=== PATIENT | male | born 1950 | race Caucasian/White ===

== ENCOUNTER 2022-02-19 08:16 | Emergency (ER) | payer MEDICARE, SELFPAY ==
--- NOTE | 2022-02-19 08:34 | XRR_ITS ---
PROCEDURE INFORMATION: Exam: XR Chest Exam date and time: 02/19/2022 8:46 AM Age: 71 years old Clinical indication: Cough and dyspnea; Additional info: Dyspnea/cough TECHNIQUE: Imaging protocol: Radiologic exam of the chest. Views: 1 view. COMPARISON: No relevant prior studies available. FINDINGS: Lungs: Calcified granuloma in the mid left lung. No focal airspace consolidation. Pleural spaces: Unremarkable. No pleural effusion. No pneumothorax. Heart/Mediastinum: Changes of prior CABG. Bones/joints: Unremarkable. XR/XR chest 1V portable [id number] IMPRESSION: No acute cardiopulmonary abnormality.
[2022-02-19 08:38] VITALS: BP 108/66; PULSE 77; RESP 16; TEMP 38.1; O2SAT 91
--- NOTE | 2022-02-19 08:51 | ED_ITS ---
HPI - Weakness General: Chief complaint: Weakness Stated complaint: SOB Time Seen by Provider: 02/19/22 08:33 Source: patient Mode of arrival: ambulatory History of Present Illness: 71-year-old male presents emergency room with pro ductive cough for the last couple of days. He reported home his oxygen saturations 82% he has been in mid 90s on room air since arriving here he is complaining of myalgias productive cough and sore throat low-grade fever as well no vomiting no diarrhea no chest pain or abdominal pain no dysuria urgency or frequency. Symptoms began 3 to 4 days after he was exposed to other sick family members during the holiday gathering slightly over a week ago. MD Complaint: generalized weakness Onset (ago): day(s) (4) Duration: constant Location: generalized Relieving factors: none Exacerbating factors: none Associated symptoms: Reports chills, decreased appetite, fever(s), headache(s), myalgias, nausea and short of breath; Denies chest pain, confusion, melena, diaphoresis, dysuria, easy bruising, rash, syncope or vomiting Review of Systems Const: Reports: fever(s), chills, fatigue and malaise; Denies: diaphoresis ENMT: Denies: throat pain, ear or mastoid pain, nasal discharge or nasal congestion Card: Denies: chest pain, palpitations, irregular heart rhythm or syncope Resp: Reports: dyspnea and productive cough; Denies: non-productive cough GI: Reports: nausea; Denies: vomiting or melena : Denies: dysuria, urinary frequency or urinary urgency Musc: Reports: neck pain, back pain and extremity pain Skin/Breast: Denies: rash or pruritus Neuro: Reports: headache(s); Denies: confusion Kevin/Lymph: Denies: easy bruising PFS ED PFSH: Social History (Updated 02/19/22 @ 09:05 by Smith Garcia DO) Smoking and tobacco status: never smoked Alcohol intake: current Alcohol intake frequency: holidays/special occasions only Physical Exam Const: COMMON NORMALS: no acute distress GENERAL APPEARANCE: cooperative and comfortable ORIENTATION/CONSCIOUSNESS: Yes awake, Yes oriented to person, Yes oriented to place and Yes oriented to time HENMT: COMMON NORMALS: normocephalic, atraumatic and hearing grossly normal bilaterally HEAD & SCALP: normocephalic and atraumatic Resp: COMMON NORMALS: normal respiratory effort, No retractions and No use of accessory muscles AUSCULTATION: rhonchi Cardio: COMMON NORMALS: regular rate, regular rhythm and No murmurs present (Cardio) RATE: regular rate RHYTHM: regular rhythm GI: COMMON NORMALS: Soft to palpation and No hepatosplenomegaly present AUSCULTATION: Yes normoactive bowel sounds PALPATION: Yes Soft to palpation, No Tenderness to palpation present (GI), No Guarding due to palpation present (GI) and Yes No hepatosplenomegaly present Extremity: COMMON NORMALS: normal to inspection, capillary refill normal, no clubbing, cyanosis or edema, no calf tenderness and no pedal edema Neuro: SENSORIUM/ORIENTATION: Yes oriented to person, Yes oriented to place and Yes oriented to time Skin: COMMON NORMALS: no rashes or lesions noted GENERAL SKIN EXAM: no rashes or lesions noted Course Vital Signs: Vital signs: Vital Signs Temperature 100.6 F H 02/19/22 08:38 Pulse Rate 88 02/19/22 12:06 Respiratory Rate 16 02/19/22 12:02 Blood Pressure 100/51 02/19/22 11:22 Pulse Oximetry 98 02/19/22 12:02 Oxygen Delivery Me thod 02/19/22 12:02 MDM - Weakness Medical Decision Making No clear pneumonia on chest x-ray or CT. No PE. I do think clinically is in 1 especially amount of thick mucus he is producing. His white count is elevated but his sats are remaining stable he is a little bit of a low-grade fever his sats improved significantly after he was given a nebulizer treatment we will discharge him home with albuterol and Levaquin. Patient usually drives back to [place] to see a physician he had before he moved to this area discussed with him why I think we can treat him as an outpatient relatively close follow-up is very important and he should be seen at the [facility] walk-in clinic in the next 2 to 3 days. If he has any worsening problems return to the emergency room. Medical Records I reviewed the patient's medical records. Lab Data I reviewed the patient's lab results. 02/19/22 08:55 02/19/22 08:55 Radiology Impressions Chest X-Ray 02/19/22 08:34 IMPRESSION: No acute cardiopulmonary abnormality. Chest CTA 02/19/22 10:46 IMPRESSION: 1. No pulmonary emboli or other acute cardiopulmonary pathology identified. 2. Several 6-7 mm pulmonary nodules are seen in the lungs bilaterally, indeterminate. Correlate with any history of malignancy or prior imaging of the chest. Otherwise, for patients at low risk (minimal or absent history of smoking and of other known risk factors), recommend CT Chest at 3-6 months, then consider CT Chest at 18-24 months. For patients at high risk (history of smoking or of other known risk factors), recommend CT Chest at 3-6 months, then CT Chest at 18-24 months. (Reference: Neto) REFERENCES: Neto Melo, et al. Guidelines for Management of Incidental Pulmonary Nodules Detected on CT Images: From the Fleischner Society 2017. Radiology. 2017;284(1):228-243. Laboratory Results WBC 24.3 10^3/uL (4.0-10.0) H 02/19/22 08:55 RBC 4.62 10^6/uL (4.1-5.3) 02/19/22 08:55 Hgb 14.5 g/dL (11.7-16.6) 02/19/22 08:55 Hct 44.5 % (42.0-52.0) 02/19/22 08:55 MCV 96.3 fl (80-94) H 02/19/22 08:55 MCH 31.4 pg (28.0-34.0) 02/19/22 08:55 MCHC 32.6 g/dL (30.0-36.0) 02/19/22 08:55 RDW 13.6 % (12.1-15.1) 02/19/22 08:55 Plt Count 85 10^3/cmm (130-400) L 02/19/22 08:55 MPV 12.8 fL (7.4-10.4) H 02/19/22 08:55 Neut % (Auto) 37.9 % 02/19/22 08:55 Lymph % (Auto) 4.1 % 02/19/22 08:55 Catron % (Auto) 57.1 % 02/19/22 08:55 Eos % (Auto) 0.1 % 02/19/22 08:55 Baso % (Auto) 0.1 % 02/19/22 08:55 Neut # (Auto) 9.19 10^3/uL (1.8-7.7) H 02/19/22 08:55 Lymph # (Auto) 1.0 10^3/uL (0.8-4.8) 02/19/22 08:55 Catron # (Auto) 13.9 10^3/uL (0.2-0.9) H 02/19/22 08:55 Eos # (Auto) 0.0 10^3/uL (0.0-0.8) 02/19/22 08:55 Baso # (Auto) 0.0 10^3/uL (0.0-0.1) 02/19/22 08:55 Nucleated RBC % (auto) 0 % 02/19/22 08:55 Nucleated RBCs # 0.0 /100WBC 02/19/22 08:55 Sodium 135 mmol/L (136-145) L 02/19/22 08:55 Potassium 3.9 mmol/L (3.5-5.1) 02/19/22 08:55 Chloride 102 mmol/L (98-107) 02/19/22 08:55 Carbon Dioxide 23 mmol/L (22-29) 02/19/22 08:55 Anion Gap 13.9 (5-19) 02/19/22 08:55 BUN 31 mg/dL (8-23) H 02/19/22 08:55 Creatinine 1.4 mg/dL (0.7-1.2) H 02/19/22 08:55 GFR Calculation Not Reportable 02/19/22 08:55 Glucose 137 mg/dL (65-115) H 02/19/22 08:55 Calculated Osmolality 289 mOsm/kg (285-295) 02/19/22 08:55 Calcium 8.7 mg/dL (8.5-10.5) 02/19/22 08:55 Total Bilirubin 0.6 mg/dL (0.15-1.2) 02/19/22 08:55 AST 120 U/L (0-40) H 02/19/22 08:55 ALT 114 U/L (0-41) H 02/19/22 08:55 Alkaline Phosphatase 96 U/L (40-130) 02/19/22 08:55 Total Protein 7.5 g/dL (6.6-8.7) 02/19/22 08:55 Albumin 4.0 g/dL (3.5-5.2) 02/19/22 08:55 Globulin 3.5 g/dL (1.3-4.6) 02/19/22 08:55 Influenza Type A Ag negative (Negative) 02/19/22 10:00 Influenza Type B Ag negative (Negative) 02/19/22 10:00 Discharge Plan Discharge Patient Disposition: Home Clinical Impression: Pneumonia Condition: Stable Prescriptions: New albuterol sulfate 90 mcg/actuation HFA aerosol inhaler 2 inh INHALATION Q4H PRN (Reason: shortness of breath or wheezing) Qty: 18 0RF levofloxacin 750 mg tablet 750 mg PO DAILY 10 Days Qty: 10 0RF Discharge Orders: Discharge ED (Routine); Ordered 02/19/22 Ordered By: Smith Garcia Patient Instructions: Opioid Safety, Pain Management Activity Restrictions/Additional Instructions: Chest x-ray and a CT were negative however based on your clinical presentation it appears you have a moderate pneumonia. Your oxygen sats are well-maintained on room air. We will discharge you home with albuterol inhaler to use as needed would recommend to use it at least every 4 hours while awake if you have any shortness of breath or cough. We will also start on an antibiotic Levaquin 750 mg once daily for 10 days. If any worsening of symptoms return to the emergency room. You should follow-up with the outpatient [facility] urgent care clinic physicians in 2 to 3 days. Coding Level of Care Code ED Surgical Instrument Technician for Ramya Fwzuly Exam Detailed
[2022-02-19 09:12] LABS: Basophils % 0.1 %; Eosinophils % 0.1 %; Hematocrit 44.5 % (42.0-52.0); Hemoglobin 14.5 g/dL (11.7-16.6); Lymphocytes % 4.1 %; Mean Corpuscular HGB Conc 32.6 g/dL (30.0-36.0); Mean Corpuscular Hemoglobin 31.4 pg (28.0-34.0); Mean Corpuscular Volume 96.3 fl (80-94); Mean Platelet Volume 12.8 fL (7.4-10.4); Monocytes # 13.9 10^3/uL (0.2-0.9); Monocytes % 57.1 %; Neutrophils # 9.19 10^3/uL (1.8-7.7); Neutrophils % 37.9 %; Nucleated Red Blood Cells % 0 %; Platelet Count 85 10^3/cmm (130-400); Red Blood Count 4.62 10^6/uL (4.1-5.3); Red Cell Distribution Width 13.6 % (12.1-15.1); White Blood Count 24.3 10^3/uL (4.0-10.0)
[2022-02-19 09:26] LABS: Alanine Aminotransferase 114 U/L (0-41); Alkaline Phosphatase 96 U/L (40-130); Anion Gap 13.9 (5-19); Aspartate Amino Transferase 120 U/L (0-40); Blood Urea Nitrogen 31 mg/dL (8-23); Calcium 8.7 mg/dL (8.5-10.5); Carbon Dioxide 23 mmol/L (22-29); Chloride 102 mmol/L (98-107); Globulin 3.5 g/dL (1.3-4.6); Glucose 137 mg/dL (65-115); Osmolality Calculated 289 mOsm/kg (285-295); Potassium 3.9 mmol/L (3.5-5.1); Sodium 135 mmol/L (136-145); Total Bilirubin 0.6 mg/dL (0.15-1.2); Total Protein 7.5 g/dL (6.6-8.7)
[2022-02-19 09:38] LABS: Slide Review Slide Review Perform
[2022-02-19 10:29] LABS: Influenza A by IFA negative (Negative); Influenza B by IFA negative (Negative)
--- NOTE | 2022-02-19 10:46 | CTR_ITS ---
PROCEDURE INFORMATION: Exam: CTA Chest With Contrast Exam date and time: 02/19/2022 10:58 AM Age: 71 years old Clinical indication: Dyspnea and other: Hemoptysis; Additional info: Dyspnea, prod cough and leukocytosis TECHNIQUE: Imaging protocol: Computed tomographic angiography of the chest with contrast. 3D rendering (Not supervised by radiologist): MIP and/or 3D reconstructed images were created by the technologist. Radiation optimization: All CT scans at this facility use at least one of these dose optimization techniques: automated exposure control; mA and/or kV adjustment per patient size (includes targeted exams where dose is matched to clinical indication); or iterative reconstruction. Contrast material: OMNI 350; Contrast volume: 73 ml; Contrast route: INTRAVENOUS (IV); COMPARISON: CR (CHEST, ) 02/19/2022 8:46 AM RADIATION DOSE METRICS: Total DLP (mGy-cm): 412.08 FINDINGS: Pulmonary arteries: Normal. No pulmonary emboli. Aorta: Unremarkable. No aortic aneurysm. No aortic dissection. Lungs: Scattered pulmonary nodules are seen in the lungs bilaterally, only some of which are calcified. There is a 6 mm right upper lobe nodule on series 7, image 153. There is a 6 mm right upper lobe nodule on image 233. There is a 7 mm right lower lobe nodule on image 242. There is a 7 mm left upper lobe nodule on image 220. Additional nodules are seen in the lungs bilaterally. No focal airspace consolidation. Pleural spaces: Unremarkable. No pneumothorax. No pleural effusion. Heart: Prior aortic valve replacement. Mild cardiomegaly. Lymph nodes: Mildly prominent mediastinal and hilar lymph nodes are seen. Index subcarinal lymph node measures up to 1.8 cm. Bones/joints: Unremarkable. No acute fracture. Soft tissues: Unremarkable. CT/CT angio chest PE protcl [id number] IMPRESSION: 1. No pulmonary emboli or other acute cardiopulmonary pathology identified. 2. Several 6-7 mm pulmonary nodules are seen in the lungs bilaterally, indeterminate. Correlate with any history of malignancy or prior imaging of the chest. Otherwise, for patients at low risk (minimal or absent history of smoking and of other known risk factors), recommend CT Chest at 3-6 months, then consider CT Chest at 18-24 months. For patients at high risk (history of smoking or of other known risk factors), recommend CT Chest at 3-6 months, then CT Chest at 18-24 months. (Reference: Neto) REFERENCES: Neto Melo, et al. Guidelines for Management of Incidental Pulmonary Nodules Detected on CT Images: From the Fleischner Society 2017. Radiology. 2017;284(1):228-243.
[2022-02-19] MEDS: iohexol 350 mg/mL 500 mL Btl (per mL) IV (11:02)
[2022-02-19 11:22] VITALS: BP 100/51; PULSE 90; O2SAT 92
[2022-02-19] MEDS: sodium chloride 0.9% 1,000 ML 999 ML IV (11:48)
[2022-02-19 12:02] VITALS: PULSE 84; RESP 16; O2SAT 98
[2022-02-19] MEDS: ipratropium-albuterol 3 mL Neb INHALATION (12:02)
[2022-02-19 12:06] VITALS: PULSE 88
== END 2022-02-19 12:40 | disposition home or self-care (01) ==
PROVIDERS: Emergency Provider Family Medicine
DX: J18.9 Pneumonia, unspecified organism (principal)
CPT/HCPCS: 71045; 71275; 80053; 85025; 87804; 94640; 99284; J7030; Q9967

== ENCOUNTER 2023-11-22 10:01 | Outpatient (CLI) | payer MEDICARE, SELFPAY ==
[2023-11-24 17:49] LABS: PSA Free 0.3 ng/mL; PSA Free Percentage 5 % (calc) (>25); PSA Total 5.8 ng/mL (< OR = 4.0)
== END 2023-11-22 10:02 | disposition home or self-care (01) ==
LOC: LAB 10:08
PROVIDERS: PCP Hospitalist; Visit Provider Hospitalist
DX: R97.20 Elevated prostate specific antigen [PSA] (principal)
CPT/HCPCS: 36415; 84154

== ENCOUNTER → 2024-12-12 08:08 | Outpatient (BNVA) | payer MEDICARE, SELFPAY | PROVIDERS: PCP Hospitalist; Visit Provider Thoracic Surgery (Cardiothoracic Vascular Surgery) | DX: I96 Gangrene, not elsewhere classified (principal) | CPT/HCPCS: 97597; 99213; A6210; A6213 ==

== ENCOUNTER → 2024-12-24 08:07 | Outpatient (BNVA) | payer MEDICARE, SELFPAY | PROVIDERS: PCP Hospitalist; Visit Provider Thoracic Surgery (Cardiothoracic Vascular Surgery) | DX: I96 Gangrene, not elsewhere classified (principal); L97.821 Non-pressure chronic ulcer of other part of left lower leg limited to breakdown of skin | CPT/HCPCS: 97597; A6210 ==

== ENCOUNTER 2025-01-15 06:29 | Emergency (ER) | payer MEDICARE, SELFPAY ==
[2025-01-15] VITALS (43 sets, daily range): BP systolic 91–138; BP diastolic 54–84; PULSE 73–115; RESP 10–21; TEMP 36.7; O2SAT 89–97; BMI 23.1
--- OUTSIDE RECORDS SUMMARY | 2025-01-15 06:38 | XMS_ITS | Encounter Summary ---
Author Organization [facility] Address [address] [place] [address] Care Team Providers Care Academic Services Professional Name Role Phone Hector Stoner MD Primary Care Provider [phone] Encounter Details Date Type Department Care Team (Late st Contact Info) Description 12/21/2013 Ancillary Orders [facility] [place] [address] [place] [id number] Social History Tobacco Use Types Packs/Day Years Used Date Smoking Tobacco: Never Assessed Sex and Gender Information Value Date Recorded Sex Assigned at Not on file 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 Gender Identity Not on file Sexual Orientation Not on file documented as of this encounter Plan of Treatment Not on file documented as of this encounter Procedures Procedure Name Priority Date/Time Associated Diagnosis Comments PSA MEDICARE SCREEN Routine 12/21/2013 1 1:56 AM CDT CBC WITH DIFFERENTIAL Routine 12/21/2013 11:56 AM CDT COMPREHENSIVE METABOLIC PANEL Routine 12/21/2013 11:56 AM CDT documented in this encounter Results * (ABNORMAL) CBC WITH DIFFERENTIAL (12/21/2013 11:56 AM CDT) WBC 4.3 4.2 - 9.1 K/uL 12/21/2013 2:29 PM CDT [facility] RBC 4.56(L) 4.63 - 6.08 M/uL 12/21/2013 2:29 PM CDT [facility] [place] HEMOGLOBIN 14.9 13.7 - 17.5 g/dL 12/21/2013 2:29 PM CDT [facility] [place] HEMATOCRIT 42.5 40.1 - 51.0 % 12/21/2013 2:29 PM CDT [facility] MCV 93.2(H) 79.0 - 92.2 fL 12/21/2013 2:29 PM CDT [facility] MCH 32.7(H) 25.7 - 32.2 pg 12/21/2013 2:29 PM CDT [facility] MCHC 35.1 32.3 - 36.5 g/dL 12/21/2013 2:29 PM CDT [facility] RDW 12.8 11.0 - 14.5 % 12/21/2013 2:29 PM CDT [facility] [place] RDW-STDEV 42.6 36.9 - 56.9 fL 12/21/2013 2:29 PM CDT [facility] [place] PLATELETS 190 130 - 400 K/uL 12/21/2013 2:29 PM CDT [facility] [place] MPV 11.6 10.0 - 14.8 fL 12/21/2013 2:29 PM CDT [facility] NEUTROPHILS 57 34 - 68 % 12/21/2013 2:29 PM CDT [facility] LYMPHOCYTES 23 22 - 53 % 12/21/2013 2:29 PM CDT [facility] MONOCYTES 18(H) 5 - 12 % 12/21/2013 2:29 PM CDT [facility] EOSINOPHILS 2 1 - 7 % 12/21/2013 2:29 PM CDT [facility] BASOPHILS 1 0 - 1 % 12/21/2013 2:29 PM CDT [facility] [place] NEUTROPHIL ABSOLUTE 2.46 1.78 - 5.38 K/uL 12/21/2013 2:29 PM CDT [facility] [place] LYMPHOCYTE ABSOLUTE 0.98(L) 1.20 - 3.40 K/uL 12/21/2013 2:29 PM CDT [facility] [place] MONOCYTE ABSOLUTE 0.77 0.30 - 0.82 K/uL 12/21/2013 2:29 PM CDT [facility] [place] [place] EOSINOPHIL ABSOLUTE 0.08 0.04 - 0.54 K/uL 12/21/2013 2:29 PM CDT [facility] [place] BASOPHILS ABSOLUTE 0.03 0.01 - 0.08 K/uL 12/21/2013 2:29 PM CDT [facility] [place] IMMATURE GRANULOCYTES 0 % 12/21/2013 2:29 PM CDT [facility] [place] IMMATURE GRANULOCYTES ABSOLUTE 0.00 K/uL 12/21/2013 2:29 PM CDT [facility] [place] Blood Venipuncture - L ab Collect / Unknown 12/21/2013 11:56 AM CDT 12/21/2013 11:57 AM CDT us External Provider Mtnv HEMATOLOGY ORDERABLES Fin al Result Performing Organization Address City/State/[facility] Co de Phone Number [facility] [place] CLIA # [id number] [address] [place] [phone] * (ABNORMAL) COMPREHENSIVE METABOLIC PANEL (12/21/2013 11:56 AM CDT) SODIUM 139 136 - 145 mmol/L 12/21/2013 3:27 PM CDT [facility] [place] POTASSIUM 4.4 3.5 - 5.1 mmol/L 12/21/2013 3:27 PM CDT [facility] [place] CHLORIDE 104 98 - 107 mmol/L 12/21/2013 3:27 PM CDT [facility] [place] CO2 31 21 - 32 mmol/L 12/21/2013 3:27 PM CDT [facility] [place] CALCIUM 8.9 8.5 - 10.1 mg/dL 12/21/2013 3:27 PM CDT [facility] [place] BUN 17 7 - 18 mg/dL 12/21/2013 3:27 PM CDT [facility] [place] CREATININE 1.10 0.60 - 1.30 mg/dL 12/21/2013 3:27 PM CDT [facility] [place] GLUCOSE 86 74 - 106 mg/dL 12/21/2013 3:27 PM CDT [facility] [place] TOTAL PROTEIN 7.4 6.4 - 8.2 g/dL 12/21/2013 3:27 PM [facility] ALBUMIN 3.8 3.4 - 5.0 g/dL 12/21/2013 3:27 PM [facility] BILIRUBIN TOTAL 0.6 0.2 - 1.0 mg/dL 12/21/2013 3:27 PM [facility] ALKALINE PHOSPHATASE 62 46 - 116 U/L 12/21/2013 3:27 PM [facility] AST 23 15 - 37 U/L 12/21/2013 3:27 PM [facility] ALT 22(L) 30 - 65 U/L 12/21/2013 3:27 PM [facility] GFR >60 >=60 mL/min/1.7 3 sq meter 12/21/2013 3:27 PM [facility] [employer] [facility] Comment: eGFR has not been validated for use in the elderly (> 70 years of age), women, patients with serious co-morbid conditions, or persons with extremes of body size or muscle mass and should also be interpreted with caution in patients with acute kidney failure, dialysis dependent patients, patients reporting exceptional dietary intake (e.g. vegetarian diet, high protein diets, creatine supplementation), and patients with severe liver disease. Based on National Kidney Disease Education Program If patient is , please refer to the GFR result. GFR, >60 >=60 mL/min/1.7 3 sq meter 12/21/2013 3:27 PM [facility] [employer] [facility] ANION GAP 4(L) 12 - 20 12/21/2013 3:27 PM [facility] [employer] [facility] Blood Venipuncture - L ab Collect / Unknown 12/21/2013 11:56 AM CDT 12/21/2013 11:57 AM CDT Narrative [facility] [employer] [facility] - 12/21/2013 3:27 PM CDT Effective 11/21/2013, the Alkaline Phosphatase test method and reference range have changed. Please take this into consideration when interpreting results prior to or after this date. us External Provider Mtnv CHEMISTRY ORDERABLES Barb l Result [facility] [employer] [facility] CLIA # [id number] [address] [place] [address] * PSA MEDICARE SCREEN (12/21/2013 11:56 AM CDT) PSA 0.6 0.0 - 4.0 ng/mL 12/21/2013 3:[address] [facility] Blood Venipuncture - L ab Collect / Unknown 12/21/2013 11:56 AM CDT 12/21/2013 11:57 AM CDT us External Provider Mtnv CHEMISTRY ORDERABLES COM Final Result [facility] [employer] [facility] CLIA # [id number] [address] [place] [address] documented in this encounter Visit Diagnoses Not on filedocumented in this encounter Care Teams Academic Services Professional Relationship Specialty Start Date End Date Hector Stoner MD [address] [phone] PCP - General Family Practice 08/05/16 documented as of this encounter
--- OUTSIDE RECORDS SUMMARY | 2025-01-15 06:38 | XMS_ITS | Clinical Summary ---
Author Organization [facility] Address [address] [facility] [address] [facility] Attn: [place] [address] Care Team Providers Care Jet Wiper Name Role Phone Hector Stoner MD Primary Care Provider [phone] Allergies No known active allergies Medications rosuvastatin (CRESTOR) 5 mg tablet Take 5 mg by mouth daily at bedtime. 08/12/2016 Active omeprazole magnesium (PriLOSEC) 20 mg Tablet, Delayed Release (E.C.) Take 20 mg by mouth daily. 08/12/2016 Active lisinopriL (PRINIVIL) 5 mg tablet Take 5 mg by mouth daily. 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 Gender Identity Not on file Sexual Orientation Not on file Last Filed Vital Signs Vital Sign Reading Time Taken Comments Blood Pressure 127/92 08/18/2016 1:17 PM CDT Pulse 72 08/18/2016 1:17 PM CDT Temperature 36.6 C (97.9 F) 08/18/2016 12:24 PM CDT Respiratory Rate 18 08/18/2016 1:17 PM CDT Oxygen Saturation - - Inhaled Oxygen Concentration - - Weight 88.5 kg (195 lb) 08/12/2016 10:36 AM CDT Height 190.5 cm (6' 3 ) 08/12/2016 10:36 AM CDT Body Mass Index 24.37 08/12/2016 10:36 AM CDT Plan of Treatment Health Maintenance Due Date Last Done Comments DTAP/TDAP/TD VACCINES (1 - Tdap) 1969 FIT-DNA Q 3 years 1995 FIT/FOBT Q 1 year 1995 Flex Sig/CT Colonography Q 5 years 1995 PNEUMOCOCCAL VACCINE 50+ YEARS (1 of 1 - PCV) 03/27/19 ZOSTER VACCINE (1 of 2) 2000 INFLUENZA VACCINE (#1) 2024 RSV VACCINE (60+ or ) (1 - 1-dose 75+ series) 2025 COLORECTAL SCREENING 08/18/2026 08/18/2016 Colorectal Cancer Screening 08/18/2026 Care Teams Jet Wiper Relationship Specialty Start Date End Date Hector Stoner MD [address] [phone] PCP - General Family Practice 08/05/16
--- OUTSIDE RECORDS SUMMARY | 2025-01-15 06:38 | XMS_ITS | Clinical Summary ---
Author Organization [facility] Address [address] [place] [address] Phone Care Team Providers Care Chlorinator Operator Name Role Phone Hector Stoner MD Primary Care Provider [phone] Allergies No known active allergies Medications lisinopril (PRINIVIL) 5 mg tablet Take 5 mg by mouth daily. Active rosuvastatin (CRESTOR) 5 mg tablet Take 5 mg by mouth daily at bedtime. Active omeprazole magnesium (PriLOSEC OTC) 20 mg Tablet, Delayed Release (E.C.) Take 20 mg by mouth daily. 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 Gender Identity Not on file Sexual Orientation Not on file Last Filed Vital Signs Vital Sign Reading Time Taken Comments Blood Pressure 127/92 08/18/2016 1:17 PM CDT Pulse 72 08/18/2016 1:17 PM CDT Temperature 36.6 C (97.9 F) 08/18/2016 12:24 PM CDT Respiratory Rate 18 08/18/2016 1:17 PM CDT Oxygen Saturation 97% 08/18/2016 1:17 PM CDT Inhaled Oxygen Concentration - - Weight 88.5 [...] Q 5 years 1995 PNEUMOCOCCAL VACCINE 50+ YEA RS (1 of 1 - PCV) 2000 ZOSTER VACCINE (1 of 2) 2000 INFLUENZA VACCINE (#1) 2024 RSV VACCINE (60+ or ) (1 - 1-dose 75+ series) 2025 COLORECTAL SCREENING 08/18/2026 08/18/2016, 08/19/19 Colorectal Cancer Screening 08/18/2026 Insurance [employer] [facility] [employer] MEDICARE PART A AND B Advance Directives For more information, please contact: [phone] * Full Code (Latest Code Status on File) Date Activated Date Inactivated Comments 08/18/2016 12:29 PM 08/18/2016 3:23 PM Care Teams Chlorinator Operator Relationship Specialty Start Date End Date Hector Stoner MD [address] [phone] PCP - General Family Practice 08/05/16
--- NOTE | 2025-01-15 06:40 | W.ED.GENADLT ---
HPI - General Adult General: Chief complaint: Urogenital-Male Stated complaint: Groin pain post surg Time Seen by Provider: 01/15/25 06:33 History of Present Illness: 74-year-old male who presents emergency room complaining of lower pelvic abdominal pain difficulty urinating. Recently had a laparoscopic prostatectomy. After his surgery he had been doing well but he has increasing difficulty with urination. He has not had any fever. No vomiting or diarrhea he has noticed aura blood in his urine Associated symptoms: Reports nausea; Deny chest pain, dyspnea or rash Related Data Home Medications ?Medication ?Instructions ?Recorded ?Confirmed metoprolol succinate 25 mg 25 mg PO DAILY 02/22/22 01/15/25 tablet,extended release 24 hr rosuvastatin 10 mg tablet 10 mg PO DAILY 02/22/22 01/15/25 aspirin 81 mg tablet,delayed 81 mg PO DAILY 01/15/25 01/15/25 release (Ej Low Dose Aspirin) zjskaimqesga-hyr-ykdaj acid-vit 1 tab PO DAILY 01/15/25 01/15/25 K-lycop 400 mcg-20 mcg-370 mcg tablet (Men's 50 Plus Multivitamin) omeprazole 20 mg tablet,delayed 20 mg PO DAILY PRN Acid Reflux 01/15/25 01/15/25 release Allergies Allergy/AdvReac Type Severity Reaction Status Date / Time No Known Allergies Allergy Verified 02/22/22 07:15 Review of Systems Const: Denies: fever(s) or chills Card: Denies: chest pain Resp: Denies: dyspnea GI: Reports: abdominal pain and nausea : Reports: flank pain, difficulty urinating, urinary dribbling and hematuria; Denies: dysuria, urinary frequency or urinary urgency Musc: Denies: neck pain or back pain Skin/Breast: Denies: rash PFSH ED PFSH: Medical History Leukocytosis URI with cough and congestion Surgical History (Updated 01/15/25 @ 15:35 by Smith Garcia DO) History of robot-assisted laparoscopic radical prostatectomy Social History Smoking and tobacco/nicotine status: never used tobacco/nicotine Alcohol intake: current Alcohol intake frequency: holidays/special occasions only Physical Exam Const: GENERAL APPEARANCE: cooperative ORIENTATION/CONSCIOUSNESS: Yes awake, Yes oriented to person, Yes oriented to place and Yes oriented to time HENMT: COMMON NORMALS: normocephalic, atraumatic and hearing grossly normal bilaterally HEAD & SCALP: normocephalic and atraumatic Resp: COMMON NORMALS: normal respiratory effort, No retractions, No use of accessory muscles and clear to auscultation bilaterally AUSCULTATION: clear to auscultation bilaterally Cardio: COMMON NORMALS: regular rate, regular rhythm and No murmurs present (Cardio) RATE: regular rate RHYTHM: regular rhythm GI: COMMON NORMALS: Soft to palpation and No hepatosplenomegaly present AUSCULTATION: Yes normoactive bowel sounds PALPATION: Yes Soft to palpation, Yes Tenderness to palpation present (GI), No Guarding due to palpation present (GI) and Yes No hepatosplenomegaly present OTHER: Tender to palpation bladder palpated above the level of the umbilicus Extremity: COMMON NORMALS: normal to inspection, capillary refill normal, no clubbing, cyanosis or edema, no calf tenderness and no pedal edema Neuro: SENSORIUM/ORIENTATION: Yes oriented to person, Yes oriented to place and Yes oriented to time Skin: COMMON NORMALS: no rashes or lesions noted GENERAL SKIN EXAM: no rashes or lesions noted Course Vital Signs: Vital signs: Vital Signs Temperature 98.1 F 01/15/25 10:38 Pulse Rate 83 01/15/25 15:06 Respiratory Rate 16 01/15/25 15:06 Blood Pressure 106/58 01/15/25 15:06 Pulse Oximetry 93 01/15/25 15:06 Oxygen Delivery Me thod Room Air 01/15/25 15:06 [facility] - General Adult Medical Decision Making Patient initially presented on exam is bladder is palpable well above the bellybutton about 3 to 4 inches. Underwood was placed without difficulty or pain and began to have immediate drainage from the bladder. CT was done and there is question of the Underwood was in the proximal prostatic urethra. Attempted reposition the plate Underwood patient had significant amount of pain he already had close to it thousand out. Without the Underwood in place he continued to drain. We have made arrangements for transfer patient has acute kidney injury hyperkalemia, urinary retention and pyelonephritis. Discussed with his urologist in [place]. They were concerned about the placement of the Underwood we attempted to repeat a pelvis CT due to the CT cystourethrogram however based on the fire patrol film discussed with Dr. Erwin and we are concerned about instilling any contrast. Tip of the Underwood looks like it may be outside the urethra however Underwood continues to drain we did clamped it for a bit did bladder scan there is 475 mL in the bladder we opened it and began to drain drained over 300 mL fairly quickly. Patient stable at this time he has been adequately cultured he said IV fluid bolus been treated for his hyperkalemia repeat BMP shows an improvement in his hyperkalemia down to to a normal range of 4.2 his creatinine went from 9 3-5 4. He generally is feeling better we have discussed with him and we will transfer to [facility] in [place] where he previously had his surgery Medical Records I reviewed the patient's medical records. Lab Data I reviewed the patient's lab results. 01/15/25 06:46 01/15/25 11:12 Radiology Impressions Abdomen/Pelvis CT 01/15/25 07:31 IMPRESSION: 1. Enlarged edematous kidneys with perinephric stranding. Very minimal dilatation of the renal pelves. Ureters are not dilated. Findings are consistent with pyelonephritis. 2. Urinary bladder is moderately distended. 3. There is a Underwood catheter present but the balloon is distended within the prostatic/membranous portion of the urethra and there is fluid surrounding the Underwood balloon suggest there may be a perforation or injury to the urethra. Recommend repositioning of the Underwood catheter. 4. Cholelithiasis without acute cholecystitis. Notified Smith Garcia DO at 01/15/2025 9:[address] 01/15/25 12:49 IMPRESSION: 1. Underwood catheter balloon continues to be distended in the expected location of the prostatic urethra. Small amount of surrounding fluid suggest there may be an injury to the urethra or bladder. 2. Urinary bladder continues to be moderately distended. Laboratory Results WBC 21.55 10^3/uL (3.29-11.43) H 01/15/25 06:46 RBC 4.32 10^6/uL (3.85-5.65) 01/15/25 06:46 Hgb 13.40 g/dL (11.27-16.99) 01/15/25 06:46 Hct 38.8 % (37-53) 01/15/25 06:46 MCV 89.8 fl (82-101) 01/15/25 06:46 MCH 31.0 pg (27-33) 01/15/25 06:46 MCHC 34.5 g/dL (30-55) 01/15/25 06:46 RDW 13.7 % (12.1-15.1) 01/15/25 06:46 Plt Count 174 10^3/cmm (157-399) 01/15/25 06:46 MPV 12.3 fL (7.4-10.4) H 01/15/25 06:46 Neut % (Auto) 60.8 % 01/15/25 06:46 Lymph % (Auto) 4.5 % 01/15/25 06:46 Hinds % (Auto) 33.1 % 01/15/25 06:46 Eos % (Auto) 0.1 % 01/15/25 06:46 Baso % (Auto) 0.1 % 01/15/25 06:46 Neut # (Auto) 13.08 10^3/uL (1.8-7.7) H 01/15/25 06:46 Lymph # (Auto) 1.0 10^3/uL (0.8-4.8) 01/15/25 06:46 Hinds # (Auto) 7.1 10^3/uL (0.2-0.9) H 01/15/25 06:46 Eos # (Auto) 0.0 10^3/uL (0.0-0.8) 01/15/25 06:46 Baso # (Auto) 0.0 10^3/uL (0.0-0.1) 01/15/25 06:46 Nucleated RBC % (auto) 0 % 01/15/25 06:46 Nucleated RBCs # 0.0 /100WBC 01/15/25 06:46 Sodium 137 mmol/L (136-145) 01/15/25 11:12 Potassium 4.2 mmol/L (3.5-5.1) 01/15/25 11:12 Chloride 101 mmol/L (98-107) 01/15/25 11:12 Carbon Dioxide 19 mmol/L (22-29) L 01/15/25 11:12 Anion Gap 21.2 (5-19) H 01/15/25 11:12 BUN 63 mg/dL (8-23) H 01/15/25 11:12 Creatinine 5.4 mg/dL (0.7-1.2) H 01/15/25 11:12 GFR Calculation Not Reportable 01/15/25 11:12 Glucose 83 mg/dL (65-115) 01/15/25 11:12 POC Glucose 127 mg/dL (70-110) H 01/15/25 09:30 Calculated Osmolality 301 mOsm/kg (285-295) H 01/15/25 11:12 Lactic Acid 1.3 mmol/L (0.5-2.2) 01/15/25 06:46 Calcium 8.6 mg/dL (8.5-10.5) 01/15/25 11:12 Total Bilirubin 0.5 mg/dL (0.15-1.2) 01/15/25 06:46 AST 48 U/L (0-40) H 01/15/25 06:46 ALT 35 U/L (0-41) 01/15/25 06:46 Alkaline Phosphatase 150 U/L (40-130) H 01/15/25 06:46 Total Protein 7.6 g/dL (6.6-8.7) 01/15/25 06:46 Albumin 4.4 g/dL (3.5-5.2) 01/15/25 06:46 Globulin 3.2 g/dL (1.3-4.6) 01/15/25 06:46 Urine Color Red (Yellow) A 01/15/25 07:03 Urine Appearance Turbid (CLEAR) A 01/15/25 07:03 Urine pH Not Reportable 01/15/25 07:03 Ur Specific [place] Not Reportable 01/15/25 07:03 Urine Protein Not Reportable 01/15/25 07:03 Urine Glucose (UA) Not Reportable 01/15/25 07:03 Urine Ketones Not Reportable 01/15/25 07:03 Urine Blood Not Reportable 01/15/25 07:03 Urine Nitrate Not Reportable 01/15/25 07:03 Urine Bilirubin Not Reportable 01/15/25 07:03 Urine Urobilinogen Not Reportable 01/15/25 07:03 Ur Leukocyte Esterase Not Reportable 01/15/25 07:03 Urine RBC Too numerous to cnt /hpf (0-2) H 01/15/25 07:03 Urine WBC 15-25 /hpf (0-5) H 01/15/25 07:03 Ur Squamous Epith Cells 0-4 /hpf (0-5) H 01/15/25 07:03 Amorphous Sediment Not Reportable 01/15/25 07:03 Urine Bacteria Trace /hpf (NONE) 01/15/25 07:03 All radiology interpretation(s) finalized by discharge Discharge Plan Discharge Patient Disposition: Xfer Short-Term Hosp Clinical Impression: Acute kidney injury, Urinary tract infection, Acute retention of urine, Acute hyperkalemia, Pyelonephritis, History of robot-assisted laparoscopic radical prostatectomy, Prostate cancer Condition: Stable Referrals: Milton Nevarez MD [Primary Care Provider, Unknown] Print Language: Croatian Coding Level of Care Code ED Biopharmaceutical Rep for Ramya Magallanes
[2025-01-15 07:00] LABS: Hematocrit 38.8 % (37-53); Hemoglobin 13.40 g/dL (11.27-16.99); Mean Corpuscular HGB Conc 34.5 g/dL (30-55); Mean Corpuscular Hemoglobin 31.0 pg (27-33); Mean Corpuscular Volume 89.8 fl (82-101); Nucleated Red Blood Cells % 0 %; Platelet Count 174 10^3/cmm (157-399); Red Blood Count 4.32 10^6/uL (3.85-5.65); White Blood Count 21.55 10^3/uL (3.29-11.43)
--- NOTE | 2025-01-15 07:08 | PC.NURSE ---
SCHOOL BUS ATTENDANT, NICKIE, PLACED ZENDEJAS, TOLERATED PROCEDURE WELL. PATIENT HAS DARK RED BLOOD DRAINING AFTER ZENDEJAS PLACED. PATIENT ALSO HAS SKIN AND TISSUE BREAKDOWN AT BASE OF PENIS. PROVIDER NOTIFIED.
[2025-01-15 07:12] LABS: Alanine Aminotransferase 35 U/L (0-41); Albumin Level 4.4 g/dL (3.5-5.2); Alkaline Phosphatase 150 U/L (40-130); Aspartate Amino Transferase 48 U/L (0-40); Calcium 9.3 mg/dL (8.5-10.5); Carbon Dioxide 16 mmol/L (22-29); Chloride 87 mmol/L (98-107); Creatinine Clr Calc Pharmacy 8.3058; Globulin 3.2 g/dL (1.3-4.6); Glucose 96 mg/dL (65-115); Osmolality Calculated 289 mOsm/kg (285-295); Sodium 127 mmol/L (136-145); Total Protein 7.6 g/dL (6.6-8.7)
[2025-01-15 07:23] LABS: Anion Gap 29.9 (5-19); Blood Urea Nitrogen 84 mg/dL (8-23); Potassium 5.9 mmol/L (3.5-5.1)
[2025-01-15 07:28] LABS: Add Urine Microscopic? YES; UA Manual Slide Review YES
--- NOTE | 2025-01-15 07:31 | CT_ITS ---
WS: [id number] CT ABDOMEN AND PELVIS NONCONTRAST HISTORY: Urinary retention acute renal failure TECHNIQUE: Imaging performed through the abdomen and pelvis. Coronal and sagittal reformats are submitted. All CT scans at [facility] use at least one of these dose optimization techniques: automated exposure control; mA and/or kV adjustment per patient size (includes targeted exams where dose is matched to clinical indication); or iterative reconstruction. DLP: 630.36 mGy.cm COMPARISON: None available. Lower thorax: 3 mm subpleural nodules LEFT lower lobe. Mild cardiomegaly. Moderate size hiatal hernia. Liver: Cirrhotic appearing liver. Mild heterogeneity within the parenchyma. Gallbladder: Normally distended with cholelithiasis. Pancreas: Normal size and attenuation. Normal pancreatic duct. No pancreatitis or mass. Spleen: Normal. Adrenal glands: Normal. No mass. Right kidney: Moderate perinephric stranding. RIGHT kidney appears slightly enlarged and edematous. There are a few tiny nonobstructing central calcifications. Mild dilatation of the RIGHT pelvis. The RIGHT ureter is not dilated. Left kidney: Moderate perinephric stranding. LEFT kidney appears mildly edematous. There are a few nonobstructing calcifications in the renal pelvis. Mild dilatation of the renal pelvis. Mild stranding around the proximal ureter. Distal ureter is not significantly dilated. Aorta: Mild atherosclerosis abdominal aorta with no aneurysm. No free fluid, intraperitoneal air or significant lymphadenopathy. GI tract: No obstruction. Diffuse mild constipation. No colitis. Abdominal wall: Ventral abdominal wall hernia contains fat only. Pelvis: Urinary bladder is moderately distended. There is a Underwood catheter present. The balloon is distended in the membranous or prostatic portion of the urethra. There is fluid extending anterior and to the LEFT from the prostatic portion of the urethra. This fluid collection is irregular measuring 6.2 x 4.4 cm. There is a tract contiguous and extending to the catheter to the urethra. Osseous structures: Unremarkable. CT/CT kidney stone [id number] IMPRESSION: 1. Enlarged edematous kidneys with perinephric stranding. Very minimal dilatat ion of the renal pelves. Ureters are not dilated. Findings are consistent with pyelonephritis. 2. Urinary bladder is moderately distended. 3. There is a Underwood catheter present but the balloon is distended within the p rostatic/membranous portion of the urethra and there is fluid surrounding the F oley balloon suggest there may be a perforation or injury to the urethra. Recom mend repositioning of the Underwood catheter. 4. Cholelithiasis without acute cholecystitis. Notified Smith Garcia DO at 01/15/2025 9:19 AM.
[2025-01-15 07:48] LABS: Lactic Sepsis W/Reflex 1.3 mmol/L (0.5-2.2)
--- NOTE | 2025-01-15 07:48 | ECG_ITS ---
[facility] Test Date: 2025-01-15 Pat Name: Mayur Howard Department: Room: Gender: Male Documentation Manager: : 1950 Requested By: Smith Jones Order Number: [id number] Reading MD: SHADI KING Measurements Intervals [place] Rate: 78 P: 13 ID: [id number] QRS: 65 QRSD: 141 T: 40 QT: 397 QTc: 455 Interpretive Statements SINUS RHYTHM RIGHT BUNDLE BRANCH BLOCK [120+ ms QRS DURATION, UPRIGHT V1, 40+ ms S IN I/aVL/V4/V5/V6] No previous ECG available for comparison Electronically Signed On 01-18-2025 21:15:27 CDT by SHADI KING [id number]
[2025-01-15] MEDS: cefTRIAXone 1,000 mg SDV 1000 MG IVP (08:00)
[2025-01-15] MEDS: calcium chloride 10% Syr 10 mL 1 GM IVP (08:07)
[2025-01-15] MEDS: sodium bicarbonate 8.4% syr 150 MEQ in dextrose 5% 200 ML 700 MEQ IV (08:11)
[2025-01-15] MEDS: insulin regular-human 100 units/1 mL 10 UNIT IVP (08:59)
--- NOTE | 2025-01-15 08:59 | PC.NURSE ---
INSULIN DELAYED DUE TO PATIENT BLOOD SUGAR OF 103 AND DEXTROSE RUNNING FOR SEPSIS AND POTASSIUM BOLUS.
--- NOTE | 2025-01-15 09:26 | PC.NURSE ---
2000 ML OUT OF ZENDEJAS, BRIGHT RED WITH CLOTS.
--- NOTE | 2025-01-15 09:26 | PC.NURSE ---
PER PHYSICIAN, ZENDEJAS NEEDED TO BE FURTHER INSERTED, PATIENT ZENDEJAS BULB IN PROSTATE. EXPLAINED TO PROVIDER THAT ZENDEJAS HAS DRAINED APPROXIMATELY 2000 ML OUT AND RETURN FLASH WAS SEEN AT TIME OF ZENDEJAS INSERT, PATENT AND DRAINING. PROVIDER VERBALIZED UNDERSTANDING AND AGREES THAT APPROPRIATE ACTION WAS TAKEN AT TIME OF ZENDEJAS INSERTION. ZENDEJAS FURTHER INSERTED INTO BLADDER, ZENDEJAS STILL PATENT AND DRAINING, CLOTS NOTED. PROVIDER NOTIFIED. 4 MG ZOFRAN AND 4 MG MORPHINE ORDERED.
[2025-01-15] MEDS: morphine 4 mg/mL SDV 1 mL IVP (09:46)
[2025-01-15] MEDS: ondansetron 2 mg/ML SDV 2 mL 4 MG IVP ×2 (09:46→16:50)
--- NOTE | 2025-01-15 12:03 | PC.NURSE ---
PATIENT ZENDEJAS BAG EMPTIED, ANOTHER 1700 ML REMOVED.
[2025-01-15 12:20] LABS: Blood Urea Nitrogen 63 mg/dL (8-23); Calcium 8.6 mg/dL (8.5-10.5); Carbon Dioxide 19 mmol/L (22-29); Chloride 101 mmol/L (98-107); Creatinine Clr Calc Pharmacy 14.3044; Glucose 83 mg/dL (65-115); Osmolality Calculated 301 mOsm/kg (285-295); Sodium 137 mmol/L (136-145)
[2025-01-15 12:32] LABS: Anion Gap 21.2 (5-19); Potassium 4.2 mmol/L (3.5-5.1)
--- NOTE | 2025-01-15 12:49 | CT_ITS ---
WS: [id number] CT PELVIS NONCONTRAST HISTORY: GROIN PAIN TECHNIQUE: Contiguous imaging is performed of the pelvis without contrast. Coronal and sagittal reformats are reviewed. All CT scans at [facility] use at least one of these dose optimization techniques: automated exposure control; mA and/or kV adjustment per patient size (includes targeted exams where dose is matched to clinical indication); or iterative reconstruction. DLP: 422.47 mGy COMPARISON: 01/15/[address] cystogram. Cystogram will not be performed due to location of the Underwood catheter. Urinary bladder continues to be moderately well distended. Underwood catheter is reidentified and does not extend into the bladder. The catheter balloon does appear to be distended in the region of the prostatic urethra. There is a small amount of surrounding fluid suggesting there may be an injury to the urethra the bladder. Continued perinephric stranding around the visualized lower poles of each kidney. CT/CT pelvis wo con [id number] IMPRESSION: 1. Underwood catheter balloon continues to be distended in the expected location o f the prostatic urethra. Small amount of surrounding fluid suggest there may be an injury to the urethra or bladder. 2. Urinary bladder continues to be moderately distended.
--- NOTE | 2025-01-15 13:30 | PC.NURSE ---
PATIENT TAKING TO CT TO DO SCAN REQUESTED BY YURY CARMONA. CONCERN REMAINS ABOUT PATIENT ZENDEJAS PLACEMENT. PER ARNAUD, CLAMP ZENDEJAS FOR 15 MINUTES, COMPLETELY DRAIN ZENDEJAS BAG, BLADDER SCAN, AND THEN OPEN UNCLAMP ZENDEJAS. 600 ML DRAINED FROM ZENDEJAS. 475 ML ON BLADDER SCAN.
--- NOTE | 2025-01-15 13:45 | PC.NURSE ---
300 ML OUT AFTER CLAMP REMOVED. PROVIDER NOTIFIED.
--- NOTE | 2025-01-15 15:06 | PC.NURSE ---
ATTEMPTED REPORT TO YURY CARMONA AT [id number]. REFUSED REPORT STATING THE CHARGE THOUGHT THE PATIENT WAS NO LONGER COMING TO THIS FACILITY. NURSE STATES SHE WILL CALL BACK.
--- NOTE | 2025-01-15 15:19 | PC.NURSE ---
PATIENT RESTING IN BED WITH EYES CLOSED, EVEN UNLABORED RESPIRATIONS.
[2025-01-15] MEDS: fentaNYL 50 mcg/mL INJ 2mL IVP (16:50)
== END 2025-01-15 17:00 | disposition short-term general hospital (02) ==
PROVIDERS: Emergency Provider Family Medicine; PCP Hospitalist
DX: N17.9 Acute kidney failure, unspecified (principal); N39.0 Urinary tract infection, site not specified; R33.8 Other retention of urine; E87.5 Hyperkalemia; N12 Tubulo-interstitial nephritis, not specified as acute or chronic; Z98.890 Other specified postprocedural states; C61 Malignant neoplasm of prostate
CPT/HCPCS: 36415; 36416; 51702; 72192; 74176; 80048; 80053; 81001; 82962; 83605; 85025; 87040; 87086; 93005; 94640; 96361; 96374; 96375; 96376; 99285; 99291; J0696; J1815; J2270; J2405; J3010; J3490; J7030; J7060; J7611; J9999

== ENCOUNTER 2025-01-29 09:40 | Emergency (ER) | payer MEDICARE, SELFPAY ==
[2025-01-29 09:54] VITALS: BP 132/88; PULSE 85; RESP 16; TEMP 36.4; O2SAT 97
--- OUTSIDE RECORDS SUMMARY | 2025-01-29 09:54 | XMS_ITS | Clinical Summary ---
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
--- OUTSIDE RECORDS SUMMARY | 2025-01-29 09:54 | XMS_ITS | Encounter Summary ---
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 Gender Identity Not on file Sexual Orientation [...] - 9.1 K/uL 12/21/2013 2:29 PM CDT [facility] RBC 4.56(L) 4.63 - 6.08 M/uL 12/21/2013 2:29 PM CDT [facility] [place] HEMOGLOBIN 14.9 13.7 - 17.5 g/dL 12/21/2013 [...] - 14.5 % 12/21/2013 2:29 PM CDT [facility] [place] RDW-STDEV 42.6 36.9 - 56.9 fL 12/21/2013 2:29 PM CDT [facility] [place] PLATELETS 190 130 - 400 K/uL 12/21/2013 2:29 PM CDT [facility] [place] MPV 11.6 [...] - 0.54 K/uL 12/21/2013 2:29 PM CDT [facility] [place] BASOPHILS ABSOLUTE 0.03 0.01 - 0.08 K/uL 12/21/2013 2:29 PM CDT [facility] [place] IMMATURE GRANULOCYTES 0 % 12/21/2013 2:29 PM CDT [facility] [place] IMMATURE GRANULOCYTES ABSOLUTE 0.00 K/uL 12/21/2013 2:29 PM CDT [facility] [place] Blood Venipuncture - L ab Collect / Unknown 12/21/2013 11:56 AM CDT 12/21/2013 11:57 AM CDT us External Provider [facility] HEMATOLOGY ORDERABLES Fin al Result Performing Organization Address City/State/[facility] Co de Phone Number [facility] [place] CLIA # [id number] [address] [place] [id number] * (ABNORMAL) COMPREHENSIVE METABOLIC PANEL (12/21/2013 11:56 AM CDT) SODIUM 139 136 - 145 mmol/L 12/21/2013 3:27 PM CDT [facility] [place] POTASSIUM 4.4 3.5 - 5.1 mmol/L 12/21/2013 3:27 PM CDT [facility] [place] CHLORIDE 104 98 - 107 mmol/L 12/21/2013 3:27 PM CDT [facility] [place] CO2 31 21 - 32 mmol/L 12/21/2013 3:27 PM CDT [facility] [place] CALCIUM 8.9 8.5 - 10.1 mg/dL 12/21/2013 3:27 PM CDT [facility] [place] BUN 17 7 - 18 mg/dL 12/21/2013 3:27 PM CDT [facility] [place] CREATININE 1.10 0.60 - 1.30 mg/dL 12/21/2013 3:27 PM CDT [facility] [place] GLUCOSE 86 74 - 106 mg/dL 12/21/2013 3:27 PM CDT [facility] [place] TOTAL PROTEIN 7.4 6.4 - 8.2 g/dL 12/21/2013 3:27 PM [facility] ALBUMIN 3.8 3.4 - 5.0 g/dL 12/21/2013 3:27 PM [facility] BILIRUBIN TOTAL 0.6 0.2 - 1.0 mg/dL 12/21/2013 3:27 PM [facility] ALKALINE PHOSPHATASE 62 46 - 116 U/L 12/21/2013 3:27 PM [facility] AST 23 15 - 37 U/L 12/21/2013 3:27 PM [facility] ALT 22(L) 30 - 65 U/L 12/21/2013 3:27 PM [facility] GFR >60 >=60 mL/min/1.7 3 sq meter 12/21/2013 3:27 PM [facility] Comment: eGFR has not been validated for [...] mL/min/1.7 3 sq meter 12/21/2013 3:27 PM [facility] ANION GAP 4(L) 12 - 20 12/21/2013 3:27 PM [facility] Blood Venipuncture - L ab Collect / Unknown 12/21/2013 11:56 AM CDT 12/21/2013 11:57 AM CDT Narrative [facility] - 12/21/2013 3:27 PM CDT Effective 11/21/2013, the Alkaline Phosphatase test method and reference range have changed. Please take this into consideration when interpreting results prior to or after this date. us External Provider [facility] CHEMISTRY ORDERABLES Barb l Result [facility] CLIA # [id number] [address] [place] [address] * PSA MEDICARE SCREEN (12/21/2013 11:56 AM CDT) PSA 0.6 0.0 - 4.0 ng/mL 12/21/2013 3:27 PM CDT [facility] Blood Venipuncture - L ab Collect / Unknown 12/21/2013 11:56 AM CDT 12/21/2013 11:57 AM CDT us External Provider Mtnv CHEMISTRY ORDERABLES COM Final Result [facility] CLIA # [id number] [address] [place] [id number] documented in this encounter Visit Diagnoses Not on filedocumented in this encounter Care Teams Commercial Appraiser Relationship Specialty Start Date End Date Hector Stoner MD [address] [phone] PCP - General Family Practice 08/05/16 documented as of this encounter
--- OUTSIDE RECORDS SUMMARY | 2025-01-29 09:54 | XMS_ITS | Clinical Summary ---
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 [employer] MEDICARE PART A AND B Advance Directives For more information, please contact: [phone] * Full Code (Latest Code Status on File) Date Activated Date Inactivated Comments 08/18/2016 12:29 PM 08/18/2016 3:23 PM Care Teams Laborer Tree Tapping Relationship Specialty Start Date End Date Hector Stoner MD [address] [phone] PCP - General Family Practice 08/05/16
--- NOTE | 2025-01-29 10:33 | W.ED.MALEGU ---
HPI - Male Genitourinary General: Chief complaint: Urogenital-Male Stated complaint: Wants cath secured on leg Time Seen by Provider: 01/29/25 10:11 History of Present Illness: 74-year-old male presents emergency room is having difficulty with catheter the adhesive on the inner thigh on the right had come loose he wants it reattached no problems with the catheter itself he has been draining normally. Related Data Home Medications ?Medication ?Instructions ?Recorded ?Confirmed metoprolol succinate 25 mg 25 mg PO DAILY 02/22/22 01/15/25 tablet,extended release 24 hr rosuvastatin 10 mg tablet 10 mg PO DAILY 02/22/22 01/15/25 aspirin 81 mg tablet,delayed 81 mg PO DAILY 01/15/25 01/15/25 release (Ej Low Dose Aspirin) jeozuogijytj-qoq-jxuht acid-vit 1 tab PO DAILY 01/15/25 01/15/25 K-lycop 400 mcg-20 mcg-370 mcg tablet (Men's 50 Plus Multivitamin) omeprazole 20 mg tablet,delayed 20 mg PO DAILY PRN Acid Reflux 01/15/25 01/15/25 release Allergies Allergy/AdvReac Type Severity Reaction Status Date / Time No Known Allergies Allergy Verified 02/22/22 07:15 [facility] ED PFS: Medical History (Updated 01/29/25 @ 10:12 by Smith Garcia DO) Prostate cancer Leukocytosis URI with cough and congestion Surgical History (Updated 01/15/25 @ 15:35 by Smith Garcia DO) History of robot-assisted laparoscopic radical prostatectomy Social History Smoking and tobacco/nicotine status: never used tobacco/nicotine Alcohol intake: current Alcohol intake frequency: holidays/special occasions only Physical Exam Const: COMMON NORMALS: no acute distress GENERAL APPEARANCE: cooperative and comfortable ORIENTATION/CONSCIOUSNESS: Yes awake, Yes oriented to person, Yes oriented to place and Yes oriented to time HENMT: COMMON NORMALS: normocephalic, atraumatic and hearing grossly normal bilaterally HEAD & SCALP: normocephalic and atraumatic Resp: COMMON NORMALS: normal respiratory effort, No retractions, No use of accessory muscles and clear to auscultation bilaterally AUSCULTATION: clear to auscultation bilaterally Cardio: COMMON NORMALS: regular rate, regular rhythm and No murmurs present (Cardio) RATE: regular rate RHYTHM: regular rhythm Extremity: COMMON NORMALS: normal to inspection, capillary refill normal, no clubbing, cyanosis or edema, no calf tenderness and no pedal edema Neuro: SENSORIUM/ORIENTATION: Yes oriented to person, Yes oriented to place and Yes oriented to time Skin: COMMON NORMALS: no rashes or lesions noted GENERAL SKIN EXAM: no rashes or lesions noted Course Vital Signs: Vital signs: Vital Signs Temperature 97.5 F L 01/29/25 09:54 Pulse Rate 85 01/29/25 09:54 Respiratory Rate 16 01/29/25 09:54 Blood Pressure 132/88 01/29/25 09:54 Pulse Oximetry 97 01/29/25 09:54 Oxygen Delivery Me thod Room Air 01/29/25 09:54 MDM - Male Medical Decision Making Nursing staff reattach the catheter to his leg no other problems. Urine in the bag does not appear cloudy, there is no hematuria. Will discharge patient home follow-up with urology and primary care as previously scheduled. Medical Records I reviewed the patient's medical records. No radiology studies performed this visit Discharge Plan Discharge Patient Disposition: Home Clinical Impression: Complication of Underwood catheter Condition: Stable Prescriptions: No Action metoprolol succinate 25 mg tablet extended release 24 hr 25 mg PO DAILY Rx Instructions: One tablet in AM and 1/2 tablet in the evening rosuvastatin 10 mg tablet 10 mg PO DAILY aspirin [Ej Low Dose Aspirin] 81 mg Tablet,Delayed Release (Dr/Ec) 81 mg PO DAILY Men's 50 Plus Multivitamin 400-20-370 mcg Tablet 1 tab PO DAILY omeprazole 20 mg Tablet,Delayed Release (Dr/Ec) 20 mg PO DAILY PRN (Reason: Acid Reflux) Discharge Orders: Discharge ED (Routine); Ordered 01/29/25 Ordered By: Smith Garcia Referrals: Milton Nevarez MD [Primary Care Provider, Unknown] Discharge Diet: Usual diet Patient Instructions: Opioid Safety, Pain Management, Patient Portal & Myles Instructions Activity Restrictions/Additional Instructions: Thank you for choosing [facility] for your healthcare needs today. It is very important that you follow up as instructed or that you return to the Emergency Department should you have concerns or if your condition changes or worsens in any way. Emergency department visits are focused on emergent conditions, in some cases you may require further evaluation on an outpatient basis. You were seen of the difficulty with your Underwood we have resecured it follow-up with your primary care doctor or urologist as planned (Please note that included in your discharge packet is information concerning opioid safety and pain management. This information is given to all patients were discharged from the ER regardless of their discharge diagnosis or the medicines they usually take or are prescribed.) Print Language: Croatian Coding Level of Care Code ED I O Psychologist for Ramya Magallanes
== END 2025-01-29 10:25 | disposition home or self-care (01) ==
PROVIDERS: Emergency Provider Family Medicine; PCP Hospitalist
DX: T83.091A Other mechanical complication of indwelling urethral catheter, initial encounter (principal); X58.XXXA Exposure to other specified factors, initial encounter; Z79.82 Long term (current) use of aspirin; Z85.46 Personal history of malignant neoplasm of prostate
CPT/HCPCS: 99282

== ENCOUNTER 2025-03-06 14:31 | Emergency (ER) | payer MEDICARE, SELFPAY ==
[2025-03-06 14:41] VITALS: BP 126/85; PULSE 86; RESP 14; TEMP 36.4; O2SAT 99
--- OUTSIDE RECORDS SUMMARY | 2025-03-06 14:59 | XMS_ITS | Encounter Summary ---
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 Gender Identity Not on file Sexual Orientation [...] - 9.1 K/uL 12/21/2013 2:29 PM CDT [facility] RBC 4.56(L) 4.63 - 6.08 M/uL 12/21/2013 2:29 PM CDT [facility] [place] HEMOGLOBIN 14.9 13.7 - 17.5 g/dL 12/21/2013 [...] - 14.5 % 12/21/2013 2:29 PM CDT [facility] [place] RDW-STDEV 42.6 36.9 - 56.9 fL 12/21/2013 2:29 PM CDT [facility] [place] PLATELETS 190 130 - 400 K/uL 12/21/2013 2:29 PM CDT [facility] [place] MPV 11.6 [...] - 0.54 K/uL 12/21/2013 2:29 PM CDT [facility] [place] BASOPHILS ABSOLUTE 0.03 0.01 - 0.08 K/uL 12/21/2013 2:29 PM CDT [facility] [place] IMMATURE GRANULOCYTES 0 % 12/21/2013 2:29 PM CDT [facility] [place] IMMATURE GRANULOCYTES ABSOLUTE 0.00 K/uL 12/21/2013 2:29 PM CDT [facility] [place] Blood Venipuncture - L ab Collect / Unknown 12/21/2013 11:56 AM CDT 12/21/2013 11:57 AM CDT us External Provider Mtnv HEMATOLOGY ORDERABLES Fin al Result Performing Organization Address City/State/[facility] Co de Phone Number [facility] [place] CLIA # [id number] [address] [place] [id number] * (ABNORMAL) COMPREHENSIVE METABOLIC PANEL (12/21/2013 11:56 AM CDT) SODIUM 139 136 - 145 mmol/L 12/21/2013 3:27 PM CDT [facility] [place] POTASSIUM 4.4 3.5 - 5.1 mmol/L 12/21/2013 3:27 PM CDT [facility] [place] CHLORIDE 104 98 - 107 mmol/L 12/21/2013 3:27 PM CDT [facility] [place] CO2 31 21 - 32 mmol/L 12/21/2013 3:27 PM CDT [facility] [place] CALCIUM 8.9 8.5 - 10.1 mg/dL 12/21/2013 3:27 PM CDT [facility] [place] BUN 17 7 - 18 mg/dL 12/21/2013 3:27 PM CDT [facility] [place] CREATININE 1.10 0.60 - 1.30 mg/dL 12/21/2013 3:27 PM CDT [facility] [place] GLUCOSE 86 74 - 106 mg/dL 12/21/2013 3:27 PM CDT [facility] [place] TOTAL PROTEIN 7.4 6.4 - 8.2 g/dL 12/21/2013 3:27 PM [facility] ALBUMIN 3.8 3.4 - 5.0 g/dL 12/21/2013 3:27 PM [facility] BILIRUBIN TOTAL 0.6 0.2 - 1.0 mg/dL 12/21/2013 3:27 PM [facility] ALKALINE PHOSPHATASE 62 46 - 116 U/L 12/21/2013 3:27 PM [facility] AST 23 15 - 37 U/L 12/21/2013 3:27 PM [facility] ALT 22(L) 30 - 65 U/L 12/21/2013 3:27 PM [facility] GFR >60 >=60 mL/min/1.7 3 sq meter 12/21/2013 3:27 PM [facility] Comment: eGFR has not been [...] mL/min/1.7 3 sq meter 12/21/2013 3:27 PM [facility] ANION GAP 4(L) 12 - 20 12/21/2013 3:27 PM [facility] Blood Venipuncture - L ab Collect / Unknown 12/21/2013 11:56 AM CDT 12/21/2013 11:57 AM CDT Narrative [facility] - 12/21/2013 3:27 PM CDT Effective 11/21/2013, the Alkaline Phosphatase test method and reference range have changed. Please take this into consideration when interpreting results prior to or after this date. us External Provider Mtnv CHEMISTRY ORDERABLES Barb l Result [facility] CLIA # [id number] [address] [place] [id number] * PSA MEDICARE SCREEN (12/21/2013 11:56 AM CDT) PSA 0.6 0.0 - 4.0 ng/mL 12/21/2013 3:27 PM CDT [facility] Blood Venipuncture - L ab Collect / Unknown 12/21/2013 11:56 AM CDT 12/21/2013 11:57 AM CDT us External Provider Mtnv CHEMISTRY ORDERABLES COM Final Result [facility] CLIA # [id number] [address] [place] [id number] documented in this encounter Visit Diagnoses Not on filedocumented in this encounter Care Teams Publicity Agent Relationship Specialty Start Date End Date Hector Stoner MD [address] [phone] PCP - General Family Practice 08/05/16 documented as of this encounter
--- OUTSIDE RECORDS SUMMARY | 2025-03-06 14:59 | XMS_ITS | Clinical Summary ---
Author Organization 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
--- OUTSIDE RECORDS SUMMARY | 2025-03-06 14:59 | XMS_ITS | Clinical Summary ---
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
--- NOTE | 2025-03-06 15:11 | W.ED.MALEGU ---
HPI - Male Genitourinary General: Chief complaint: Urogenital-Male Stated complaint: Cath leaking Time Seen by Provider: 03/06/25 14:48 Source: patient Mode of arrival: ambulatory Limitations: no limitations History of Present Illness: Patient is a nice 74-year-old male here stating his Mcmullen bag is leaking from the bottom of the bag. He feels like his Mcmullen is otherwise draining normal and has no other complaints. He is also possibly wanting his StatLock readjusted. He does not complain of abdominal or flank pain. No nausea or vomiting. No fevers. Onset (ago): day(s) Relieving factors: none Exacerbating factors: none Associated symptoms: Reports no associated symptoms; Deny nausea or vomiting Related Data Home Medications ?Medication ?Instructions ?Recorded ?Confirmed metoprolol succinate 25 mg 25 mg PO DAILY 02/22/22 01/15/25 tablet,extended release 24 hr rosuvastatin 10 mg tablet 10 mg PO DAILY 02/22/22 01/15/25 aspirin 81 mg tablet,delayed 81 mg PO DAILY 01/15/25 01/15/25 release (Ej Low Dose Aspirin) ypprzpfhkizv-cuz-ydtqn acid-vit 1 tab PO DAILY 01/15/25 01/15/25 K-lycop 400 mcg-20 mcg-370 mcg tablet (Men's 50 Plus Multivitamin) omeprazole 20 mg tablet,delayed 20 mg PO DAILY PRN Acid Reflux 01/15/25 01/15/25 release Allergies Allergy/AdvReac Type Severity Reaction Status Date / Time No Known Allergies Allergy Verified 03/06/25 14:45 Review of Systems Const: Denies: fever(s), chills, body aches, fatigue or malaise Card: Denies: chest pain Resp: Denies: dyspnea GI: Denies: abdominal pain, nausea, vomiting, diarrhea, constipation or change in bowel habits : Reports: other (mcmullen draining well-feels like the bottom of his mcmullen bag is leaking urine); Denies: flank pain Musc: Denies: back pain Skin/Breast: Denies: rash PFSH ED PFSH: Medical History Prostate cancer Leukocytosis URI with cough and congestion Surgical History History of robot-assisted laparoscopic radical prostatectomy Social History Smoking and tobacco/nicotine status: never used tobacco/nicotine Alcohol intake: current Alcohol intake frequency: holidays/special occasions only Physical Exam Const: COMMON NORMALS: no acute distress, average body habitus, patient oriented x3, no limitations, healthy appearing, alert and well nourished Resp: COMMON NORMALS: normal respiratory effort and clear to auscultation bilaterally AUSCULTATION: clear to auscultation bilaterally Cardio: COMMON NORMALS: regular rate and regular rhythm RATE: regular rate RHYTHM: regular rhythm GI: COMMON NORMALS: Normal to inspection, nondistended, normoactive bowel sounds present, Soft to palpation, non-tender and no masses PALPATION: Yes Soft to palpation : COMMON NORMALS: Yes no CVA tenderness BLADDER/KIDNEY EXAM: Yes no CVA tenderness OTHER: mcmullen draining well-clear, yellow urine in tubing; mcmullen bag itself does appear to be leaking from the bottom of the bag-this was replaced Back/Pelvis: COMMON NORMALS: no CVA tenderness Neuro: COMMON NORMALS: patient oriented x3 SENSORIUM/ORIENTATION: Yes alert Course Vital Signs: Vital signs: Vital Signs Temperature 97.5 F L 03/06/25 14:41 Pulse Rate 86 03/06/25 14:41 Respiratory Rate 14 03/06/25 14:41 Blood Pressure 126/85 03/06/25 14:41 Pulse Oximetry 99 03/06/25 14:41 Oxygen Delivery Me thod Room Air 03/06/25 14:41 MDM - Male Medical Decision Making Mcmullen bag was changed out. Mcmullen otherwise seems to be draining well. He has no other complaints. Patient will be allowed discharge. Medical Records I reviewed the patient's medical records. No radiology studies performed this visit Discharge Plan Discharge Patient Disposition: Home Clinical Impression: Mcmullen catheter problem Qualifiers: Encounter type: initial encounter Qualified Code(s): T83.9XXA - Unspecified complication of genitourinary prosthetic device, implant and graft, initial encounter Condition: Stable Prescriptions: No Action metoprolol succinate 25 mg tablet extended release 24 hr 25 mg PO DAILY Rx Instructions: One tablet in AM and 1/2 tablet in the evening rosuvastatin 10 mg tablet 10 mg PO DAILY aspirin [Ej Low Dose Aspirin] 81 mg Tablet,Delayed Release (Dr/Ec) 81 mg PO DAILY Men's 50 Plus Multivitamin 400-20-370 mcg Tablet 1 tab PO DAILY omeprazole 20 mg Tablet,Delayed Release (Dr/Ec) 20 mg PO DAILY PRN (Reason: Acid Reflux) Discharge Orders: Discharge ED (Routine); Ordered 03/06/25 Ordered By: Rufina Bowser Referrals: Milton Nevarez MD [Primary Care Provider, Unknown] Patient Instructions: Patient Portal & Myles Instructions Print Language: Khmer Coding Level of Care Code ED Director Of Quality Control for Ramya Magallanes
== END 2025-03-06 15:21 | disposition home or self-care (01) ==
PROVIDERS: Emergency Provider Physician Assistant; PCP Hospitalist
DX: T83.091A Other mechanical complication of indwelling urethral catheter, initial encounter (principal); X58.XXXA Exposure to other specified factors, initial encounter; Z79.82 Long term (current) use of aspirin; Z85.46 Personal history of malignant neoplasm of prostate
CPT/HCPCS: 99282